=== PATIENT | male | born 1950 | race Caucasian/White ===

== ENCOUNTER → 2016-10-20 | Outpatient (CLI) | payer OTHER, MEDICARE ==
--- NOTE | 2016-10-20 16:04 | DX ---
Left knee series 3 views 1422 hours. History: Follow-up left total knee arthroplasty. Findings: Left total knee arthroplasty is in good position and alignment. No fractures are seen. Ther e is no lucency associated with the components. There is no evidence of effusion in the suprapatellar bursa. On the merchant view obtained there is no subluxation of the patella. Impression: 1. Left total knee replacement in good position and alignment.
== END ==
LOC: BMCIMAGING 14:26
PROVIDERS: ATTEND Orthopaedic Surgery
DX: Z96.652 Presence of left artificial knee joint (principal)

== ENCOUNTER → 2017-12-09 | Outpatient (CLI) | payer OTHER, MEDICARE | LOC: BMCIMAGING 10:02 | PROVIDERS: ATTEND Physician Assistant | DX: M19.011 Primary osteoarthritis, right shoulder (principal) ==

== ENCOUNTER → 2018-07-25 | Outpatient (CLI) | payer OTHER, MEDICARE | LOC: BMCIMAGING 10:27 | PROVIDERS: ATTEND Physician Assistant | DX: Z47.1 Aftercare following joint replacement surgery (principal); Z96.651 Presence of right artificial knee joint ==